=== PATIENT | male | born 1940 | race Caucasian/White ===

== ENCOUNTER → 2018-09-28 15:01 | Outpatient (CLI) | payer MEDICARE, OTHER, SELFPAY ==
[2018-09-24 10:45] VITALS: BMI 28.1
[2018-09-28 13:39] VITALS: BMI 27.8
--- NOTE | 2018-09-28 15:04 | CT_ITS ---
STUDY: CT ABDOMEN WITHOUT CONTRAST REASON FOR EXAM: Male, 78 years old. Liver and pancreatic cancer. History of liver biopsy. RADIATION DOSAGE (If Supplied By Facility): CTDIvol = ( 16.03 ) mGy, DLP = ( 688.57 ) mGycm TECHNIQUE: Transaxial images were obtained without intravenous contrast, and with oral contrast. Sagittal and coronal images were reconstructed. Individualized dose optimization techniques were used for this CT. COMPARISON: None. FINDINGS: Evaluation is limited without contrast. The visualized lung bases are unremarkable. The visualized portions of the heart are within normal limits. The liver is enlarged with innumerable hypodense masses noted throughout the hepatic parenchyma. This likely represents metastatic disease. The spleen, adrenal glands and kidneys demonstrate an unremarkable unenhanced appearance. There is a 2.6 x 2.3 cm rounded soft tissue mass adjacent to the body of the pancreas. This may represent an exophytic pancreatic mass or may represent peripancreatic lymphadenopathy. The visualized bowel demonstrates no evidence of obstruction. There are small calcified gallstones present. There is trace ascites in the right paracolic gutter. There is no abdominal free air or fluid collection identified on this noncontrast CT. The aorta is normal in caliber. There are no destructive osseous lesions. CT/Abdomen without IV Contrast IMPRESSION: Study limited without contrast. Enlarged liver with innumerable hypodense masses throughout the hepatic parenchyma which likely represent metastatic disease. 2.6 x 2.3 cm rounded soft tissue mass adjacent to the body of the pancreas. This may represent an exophytic pancreatic mass or may represent peripancreatic lymphadenopathy. Trace ascites. Gallstones. Electronically Signed: Nahid Hollins, at 16:20 EST Tel , Service support ,
== END ==
PROVIDERS: Family Provider Internal Medicine; PCP Internal Medicine; Referring Provider Internal Medicine Medical Oncology; Visit Provider Internal Medicine Medical Oncology
DX: C25.9 Malignant neoplasm of pancreas, unspecified (principal); C78.7 Secondary malignant neoplasm of liver and intrahepatic bile duct
CPT/HCPCS: 74150

== ENCOUNTER → 2018-10-27 08:57 | Outpatient (CLI) | payer MEDICARE, OTHER, SELFPAY ==
[2018-09-28 08:10] VITALS: BMI 28.1
[2018-09-29 09:57] VITALS: BMI 28.1
== END ==
PROVIDERS: Family Provider Internal Medicine; PCP Internal Medicine; Referring Provider Surgery; Visit Provider Surgery
DX: Z53.9 Procedure and treatment not carried out, unspecified reason (principal)